=== PATIENT | female | born 1960 | race Asian ===

== ENCOUNTER → 2020-11-10 | Outpatient (REF) | payer OTHER ==
[2020-11-10 12:58] LABS: APPEARANCE, URINE CLEAR (CLEAR); BACTERIA, URINE AUTO NEGATIVE (NEGATIVE); BILIRUBIN, URINE AUTO NEGATIVE (NEGATIVE); BLOOD, URINE BLOOD NEGATIVE (NEGATIVE); COLOR, URINE YELLOW (YELLOW); GLUCOSE, URINE (UA) AUTO NEGATIVE (NEGATIVE); KETONE, URINE AUTO NEGATIVE (NEGATIVE); LEUKOCYTE ESTERASE, URINE AUTO NEGATIVE (NEGATIVE); NITRITE, URINE AUTO NEGATIVE (NEGATIVE); PROTEIN, URINE AUTO NEGATIVE (NEGATIVE); RBC, URINE AUTO 1 /HPF (0-3); SQUAMOUS EPITHELIAL CELL UR AU 1 /HPF (0-6); UROBILINOGEN, URINE AUTO 0.2 mg/dL (0.0-2.0); WBC, URINE AUTO 1 /HPF (0-3)
[2020-11-10 13:27] LABS: CREATININE, URINE 69.5 MG/DL; MALB URINE SIEMENS 6.2 MG/L; MAU/CREAT RATIO 8.9 MCG/MG (0.0-30.0)
[2020-11-10 13:28] LABS: BASO # 0.1 10^3/uL (0.0-0.2); BASO % 0.8 % (0.0-1.0); EOS # 0.2 10^3/uL (0.0-0.5); EOS % 3.6 % (0.0-3.0); HEMATOCRIT 39.4 % (36.0-47.0); HEMOGLOBIN 11.8 g/dl (12.0-15.5); LYMPH # 2.1 10^3/uL (1.5-5.0); LYMPH % 32.8 % (24.0-44.0); MEAN CORPUSCULAR HEMOGLOBIN 24.3 pg (27.0-33.0); MEAN CORPUSCULAR HGB CONC 29.9 g/dl (32.0-36.5); MEAN CORPUSCULAR VOLUME 81.2 fl (80.0-96.0); MONO # 0.4 10^3/uL (0.0-0.8); MONO % 6.5 % (2.0-8.0); NEUTROPHILS # 3.6 10^3/uL (1.5-8.5); NEUTROPHILS % 55.8 % (36.0-66.0); PLATELET COUNT, AUTOMATED 355 10^3/uL (150-450); RED BLOOD COUNT 4.85 10^6/uL (4.00-5.40); WHITE BLOOD COUNT 6.4 10^3/uL (4.0-10.0)
[2020-11-10 14:01] LABS: HEMOGLOBIN A1c 6.1 %
[2020-11-10 14:05] LABS: ALBUMIN 3.1 GM/DL (3.2-5.2); ALT/SGPT 20 U/L (12-78); BILIRUBIN,TOTAL 0.4 MG/DL (0.2-1.0); BLOOD UREA NITROGEN 9 MG/DL (7-18); CALCIUM LEVEL 10.4 MG/DL (8.8-10.2); CARBON DIOXIDE LEVEL 25 MEQ/L (21-32); CHLORIDE LEVEL 107 MEQ/L (98-107); CHOLESTEROL LEVEL 239 MG/DL (<200); CHOLESTEROL RISK RATIO 5.311 (<5); CREATININE FOR GFR 0.66 MG/DL (0.55-1.30); GLOMERULAR FILTRATION RATE > 60.0 (>45); GLUCOSE, FASTING 120 MG/DL (70-100); HDL CHOLESTEROL 45 MG/DL (>40); LDL CHOLESTEROL 174 MG/DL (<100); NON-HDL-C 194 MG/DL; POTASSIUM SERUM 4.4 MEQ/L (3.5-5.1); SODIUM LEVEL 139 MEQ/L (136-145); TOTAL 25(OH) VITAMIN D 10.4 NG/ML (30.0-100.0); TOTAL PROTEIN 7.2 GM/DL (6.4-8.2); TRIGLYCERIDES LEVEL 102 MG/DL (<150)
== END ==
LOC: M LAB REF 11:31
PROVIDERS: ATTEND Pediatrics
DX: Z13.220 Encounter for screening for lipoid disorders (principal); Z13.228 Encounter for screening for other metabolic disorders; R03.0 Elevated blood-pressure reading, without diagnosis of hypertension

== ENCOUNTER → 2020-12-18 | Outpatient (CLI) | payer OTHER ==
--- NOTE | 2020-12-18 09:48 | REP ---
INDICATION: FADY SCR MAMMO/Z12.31. COMPARISON: None TECHNIQUE: Digital screening mammography was carried out bilaterally in CC and MLO projections using both 2D and 3D modalities. Although the patient is 60 years of age history given to me is that today's examination is initial screening examination. By history, the patient has no complaints of a palpable breast abnormality or other significant breast complaints. FINDINGS: The breasts are symmetric in size and shape. Dense heterogenous fibroglandular elements are seen bilaterally. In the left breast outer aspect near the 3 o'clock position in the posterior retroglandular adipose tissue there is an asymmetric density. At least 2 calcifications are seen within this density. Additionally, in the left breast upper aspect but seen only on the MLO view there is a potential density with 1 calcification along its periphery. No other suspicious features are seen in either breast. There is no skin thickening or nipple retraction. The Volpara volumetric breast density pattern is b. IMPRESSION: BIRADS/ACR category 0. Two densities seen in the left breast as described above and for which diagnostic digital magnified spot compression views are recommended in the CC and MLO projections. Additionally, further mammographic imaging may be necessary particularly an exaggerated CC view lateral in an attempt to mammographically visualize the density seen only on the MLO view today. Diagnostic ultrasonography may also be indicated. This patient's Tyrer-Cuzick lifetime breast cancer risk assessment score is 5.4%. This mammogram was interpreted with the aid of an FDA-approved computer-aided detection system. The patient states she had a clinical breast exam in over a year. The patient letter being requested is M0. RECOMMENDATION: As above <Electronically signed by Kristopher Paulino > 12/18/20 [id number]
--- NOTE | 2020-12-18 11:15 | DEXAMM ---
INDICATION: Z78.0 MENOPAUSAL STATE/VERTEBRAL FX ASSMT. COMPARISON: None. TECHNIQUE: Bone density was measured using dual-energy x-ray absorptiometry (DEXA). FINDINGS: AP SPINE L1-L4 BMD 1.070 g/cm2 Young Adult T-Score -1.0 Age Matched Z-Score 0.2. LT FEMUR, TOTAL BMD 0.945 g/cm2 Young Adult T-Score -0.5 Age Matched Z-Score 0.4. LT NECK BMD 0.809 g/cm2 Young Adult T-Score -1.7 Age Matched Z-Score -0.4. RT FEMUR, TOTAL BMD 0.941 g/cm2 Young Adult T-Score -0.5 Age Matched Z-Score 0.4. RT NECK BMD 0.877 g/cm2 Young Adult T-Score -1.2 Age Matched Z-Score 0.1. IMPRESSION: There is low bone density of the spine. There is low bone density of the left hip. There is low bone density of the right hip. FOLLOW-UP: Recommendation for the next bone density exam: 2 years. <Electronically signed by Rey Rodríguez > 12/18/20 [id number]
== END ==
LOC: M WHC 08:31
PROVIDERS: ATTEND Pediatrics
DX: Z12.31 Encounter for screening mammogram for malignant neoplasm of breast (principal); Z78.0 Asymptomatic menopausal state

== ENCOUNTER → 2021-01-02 | Outpatient (CLI) | payer OTHER ==
--- NOTE | 2021-01-02 16:30 | REP ---
INDICATION: ADDITIONAL LT BREAST; ADDITIONAL VIEW LT BREAST. Initial screening mammography from December 18, 2020 was BI-RADS category 0 because of 2 nodular densities in the left breast on screening mammography. Diagnostic imaging was recommended. COMPARISON: No other comparison studies. TECHNIQUE: Magnified focal spot-compression CC and MLO views of the left breast are obtained. A true mL view is obtained with 3D tomography. Targeted left breast sonography is performed. This mammogram was interpreted with the aid of an FDA-approved computer-aided detection system. FINDINGS: Scattered fibroglandular elements are again seen. Diagnostic images confirm the presence of 2 fairly well-circumscribed nodular densities each of which contains eccentric calcifications. The larger density is more anterior in the upper outer quadrant measuring 1.2 cm in greatest diameter. The 2nd lesion is in the posterior 3rd inferolateral aspect more centrally, approximately 3 to 4 o'clock position. This measures 0.9 cm in greatest diameter. The Volpara volumetric breast density pattern is b. Targeted ultrasound: Targeted left breast sonography is performed from 2:00 to 4:00. At 2 o'clock, there is a 0.6 x 0.3 x 0.6 cm hypoechoic nodule, 3.4 cm from the nipple. This may correspond to the more posterior lesion. It is not a simple cyst. It is similar in size. It has relatively low K PA numbers on elastography. At 3 o'clock, there is a hypoechoic area with a focal hyperechoic calcification 3.8 cm from nipple. This lesion measures 1.4 x 0.5 x 1.0 cm. Both of these targets are wider than tall. This larger lesion also has a low K PA on elastography. IMPRESSION: BIRADS/ACR category 4 suspicious left breast mammographic and sonographic findings. Two hypoechoic nodules likely corresponding to the 2 nodule seen mammographically in the upper outer quadrant of the left breast. This patient's Tyrer-Cuzick lifetime breast cancer risk assessment score is 5.4%. RECOMMENDATION: Ultrasound-guided needle biopsy of both targets in the left breast with marker clip placement and post clip placement mammography.. The patient letter being requested is M4. <Electronically signed by Malachi Mckeon > 01/02/21 [id number]
== END ==
LOC: M WHC 14:02
PROVIDERS: ATTEND Pediatrics
DX: R92.2 Inconclusive mammogram (principal)

== ENCOUNTER → 2021-01-05 | Outpatient (CLI) | payer OTHER ==
[~2021-01-05] MED LIST: LIDOCAINE 1% MDV 20ML VIAL As Ordered ONE; SODIUM BICARBONATE 8.4% INJ 50MEQ 50 ML VIAL As Ordered ONE
[2021-01-05 10:51] VITALS: BP 162/80
== END ==
LOC: M WHC 09:11 → M IRPRO 09:11
PROVIDERS: ATTEND Surgery
DX: R92.8 Other abnormal and inconclusive findings on diagnostic imaging of breast (principal)

== ENCOUNTER → 2021-01-24 | Outpatient (CLI) | payer OTHER ==
[~2021-01-24] MED LIST changes: +ERGO500029 PO; -LIDOCAINE 1% MDV 20ML VIAL As Ordered ONE; -SODIUM BICARBONATE 8.4% INJ 50MEQ 50 ML VIAL As Ordered ONE
[2021-01-24 11:20] VITALS: BP 128/82
--- NOTE | 2021-01-24 21:34 | ROOPDOC ---
[facility] Report Of Operation Report of Operation DATE OF PROCEDURE: 01/24/21 DIAGNOSIS: Left breast suspicious mass with calcifications PROCEDURE: Left breast stereotactic biopsy with clip placement SURGEON: Rasta Ash BLOOD LOSS: minimal Lidocaine 1% LOT [id number] Expiration 08/2024 Sodium Bicarbonate 8.4% LOT [id number] Expiration 08/2021 Hydromark clip LOT [id number] Expiration 07/2023 SHAPE : 1 Bx device: Stereotactic Mammotome Revolve Dual Vacuum- assisted Biopsy System 10 G LOT [id number] Expiration 11/2023 REF [id number] Informed consent was obtained in the preop area. The most common risk and possible complications including bleeding, hematoma, bruising, infection, injury to surrounding structures were explained to the patient and patient expressed understanding. Patient was taken to the procedure room and placed prone on the [facility] Prone Breast Biopsy table with the left breast hanging through the table aperture. Left breast was placed into Cranio-Caudal compression and Environmental Planner mario images were taken. Suspicious mass with calcifications was identified in the left posterior breast on the mario images and target was set. CC approach from the bottom was chosen for this procedure. At this time, since we were able to confirm visibility of the suspicious mass with calcifications and patient tolerated prone positioning allowing to proceed with the biopsy, appropriate time out was done stating patients name, date of , and the procedure to be performed. The left breast in CC compression was prepped in the usual fashion. Plain Lidocaine 1% and 8.4% sodium bicarbonate 10:1 mix was used to anesthetize the skin, the biopsy site and tissues along the anticipated biopsy tract. Small skin incision was made with blade number 11. Mammotome 10 G stereotactic breast biopsy device was inserted through the incision and advanced to the previously set coordinates marking the target lesion. Pre-fire imaging was taken to assure appropriate positioning. At this time, Mammotome 10 G breast biopsy device was fired and five vacuum assisted biopsies were collected. The biopsy samples were investigated with [employer] system and target calcifications from the suspicious mass were observed. Biopsy samples were then placed in the formaldehyde, marked with patients name and left breast posterior biopsy site, and sent to pathology for evaluation. SHAPE 1 Hydromark clip was placed into the Mammotome biopsy device channel and deployed. Post-deployment imaging was done to assure appropriate clip deployment. Clip was noted in the left breast. At this point, paddle CC compression of the left breast was released and manual pressure was held to decrease harmonic effect and to assure hemostasis. No bleeding was noted upon removal of the pressure. Patient was slowly repositioned and placed into sitting position, and then assisted off the table. Post-biopsy mammogram of the left breast was obtained and showed clip in expected position. Postprocedural dressing was placed. Patient tolerated procedure well and was taken to the recovery unit in stable condition. Discharge instructions were discussed with the patient and patient expressed understanding. RASTA ASH DO Jan 24, 2021 21:34
== END ==
LOC: M WHCPRO 07:06
PROVIDERS: ATTEND Surgery
DX: N60.22 Fibroadenosis of left breast (principal)

== ENCOUNTER → 2023-06-09 | Outpatient (REF) | payer OTHER ==
[2023-06-09 18:38] LABS: BASO % 0.5 % (0.0-1.0); EOS # 0.2 10^3/uL (0.0-0.5); EOS % 1.9 % (0.0-3.0); HEMATOCRIT 37.9 % (36.0-47.0); HEMOGLOBIN 11.4 g/dl (12.0-15.5); LYMPH # 0.5 10^3/uL (1.5-5.0); LYMPH % 6.1 % (24.0-44.0); MEAN CORPUSCULAR HEMOGLOBIN 24.3 pg (27.0-33.0); MEAN CORPUSCULAR HGB CONC 30.1 g/dl (32.0-36.5); MEAN CORPUSCULAR VOLUME 80.8 fl (80.0-96.0); MONO # 0.4 10^3/uL (0.0-0.8); MONO % 5.2 % (2.0-8.0); NEUTROPHILS # 6.8 10^3/uL (1.5-8.5); NEUTROPHILS % 85.9 % (36.0-66.0); PLATELET COUNT, AUTOMATED 307 10^3/uL (150-450); RED BLOOD COUNT 4.69 10^6/uL (4.00-5.40); WHITE BLOOD COUNT 7.9 10^3/uL (4.0-10.0)
[2023-06-09 19:03] LABS: IRON (FE) 45 UG/DL (50-170); PERCENT SATURATION 10.7 % (13.2-45.0); TOTAL IRON BINDING CAPACITY 419 UG/DL (250-425)
[2023-06-09 19:08] LABS: BLOOD UREA NITROGEN 9 MG/DL (9-23); CALCIUM LEVEL 10.3 MG/DL (8.3-10.6); CARBON DIOXIDE LEVEL 26 MMOL/L (20-31); CHLORIDE LEVEL 103 MMOL/L (98-107); CHOLESTEROL LEVEL 220 MG/DL (<200); CHOLESTEROL RISK RATIO 5.11 (<5); CREATININE FOR GFR 0.61 MG/DL (0.55-1.30); FERRITIN 2.7 NG/ML (7.3-270.7); GLOMERULAR FILTRATION RATE > 60.0 (>45); GLUCOSE, FASTING 92 MG/DL (74-106); LDL CHOLESTEROL 154.6 MG/DL (<100); POTASSIUM SERUM 4.9 MMOL/L (3.5-5.1); SODIUM LEVEL 135 MMOL/L (136-145); THYROID STIMULATING HORMONE 0.938 uIU/ML (0.55-4.78); TOTAL 25(OH) VITAMIN D 19.6 NG/ML (20.0-100.0); TRIGLYCERIDES LEVEL 112 MG/DL (<150)
[2023-06-09 19:11] LABS: HEMOGLOBIN A1c 5.9 % (4.0-6.0)
== END ==
LOC: M LAB REF 16:29
PROVIDERS: ATTEND Pediatrics
DX: E78.5 Hyperlipidemia, unspecified (principal); E55.9 Vitamin D deficiency, unspecified; I10 Essential (primary) hypertension; R73.03 Prediabetes; E61.1 Iron deficiency

== ENCOUNTER → 2023-06-18 | Outpatient (CLI) | payer OTHER | LOC: M WHC 13:53 | PROVIDERS: ATTEND Pediatrics | DX: M85.80 Other specified disorders of bone density and structure, unspecified site (principal) ==

== ENCOUNTER → 2024-04-07 | Outpatient (REF) | payer OTHER ==
[2024-04-07 16:59] LABS: APPEARANCE, URINE CLEAR (CLEAR); BACTERIA, URINE AUTO NEGATIVE (NEGATIVE); BILIRUBIN, URINE AUTO NEGATIVE (NEGATIVE); BLOOD, URINE BLOOD NEGATIVE (NEGATIVE); COLOR, URINE COLORLESS (YELLOW); GLUCOSE, URINE (UA) AUTO NEGATIVE (NEGATIVE); KETONE, URINE AUTO NEGATIVE (NEGATIVE); LEUKOCYTE ESTERASE, URINE AUTO NEGATIVE (NEGATIVE); NITRITE, URINE AUTO NEGATIVE (NEGATIVE); PROTEIN, URINE AUTO NEGATIVE (NEGATIVE); RBC, URINE AUTO 0 /HPF (0-3); SPECIFIC GRAVITY URINE AUTO 1.003 (1.002-1.035); SQUAMOUS EPITHELIAL CELL UR AU 0 /HPF (0-6); UROBILINOGEN, URINE AUTO 0.2 mg/dL (0.0-2.0); WBC, URINE AUTO 0 /HPF (0-3)
== END ==
LOC: M LAB REF 16:13
PROVIDERS: ATTEND Physician Assistant
DX: N39.0 Urinary tract infection, site not specified (principal)

== ENCOUNTER → 2024-04-09 | Outpatient (REF) | payer OTHER ==
[2024-04-09 17:35] LABS: CREATININE, URINE 43.9 MG/DL; MALB URINE SIEMENS < 3.0 MG/L; MAU/CREAT RATIO 6.8 MCG/MG (0.0-30.0)
[2024-04-09 17:37] LABS: BLOOD UREA NITROGEN 12 MG/DL (9-23); CALCIUM LEVEL 10.9 MG/DL (8.3-10.6); CARBON DIOXIDE LEVEL 25 MMOL/L (20-31); CHLORIDE LEVEL 106 MMOL/L (98-107); CHOLESTEROL LEVEL 263 MG/DL (<200); CREATININE FOR GFR 0.68 MG/DL (0.55-1.30); GLOMERULAR FILTRATION RATE > 60.0 (>45); GLUCOSE, FASTING 84 MG/DL (74-106); IRON (FE) 33 UG/DL (50-170); PERCENT SATURATION 7.6 % (13.2-45.0); POTASSIUM SERUM 4.5 MMOL/L (3.5-5.1); SODIUM LEVEL 135 MMOL/L (136-145); TOTAL IRON BINDING CAPACITY 435 UG/DL (250-425); TRIGLYCERIDES LEVEL 100 MG/DL (<150)
[2024-04-09 17:41] LABS: FERRITIN 4.9 NG/ML (7.3-270.7); THYROID STIMULATING HORMONE 0.991 uIU/ML (0.55-4.78)
[2024-04-09 17:51] LABS: BASO % 0.2 % (0.0-1.0); HEMATOCRIT 37.8 % (36.0-47.0); HEMOGLOBIN 11.5 g/dl (12.0-15.5); LYMPH # 2.2 10^3/uL (1.5-5.0); LYMPH % 19.5 % (24.0-44.0); MEAN CORPUSCULAR HGB CONC 30.4 g/dl (32.0-36.5); MEAN CORPUSCULAR VOLUME 78.9 fl (80.0-96.0); MONO # 0.5 10^3/uL (0.0-0.8); MONO % 4.5 % (2.0-8.0); NEUTROPHILS # 8.5 10^3/uL (1.5-8.5); NEUTROPHILS % 75.3 % (36.0-66.0); PLATELET COUNT, AUTOMATED 432 10^3/uL (150-450); RED BLOOD COUNT 4.79 10^6/uL (4.00-5.40); WHITE BLOOD COUNT 11.3 10^3/uL (4.0-10.0)
[2024-04-09 23:54] LABS: CHOLESTEROL RISK RATIO 5.79 (<5); HDL CHOLESTEROL 45.4 MG/DL (>40); LDL CHOLESTEROL 197.6 MG/DL (<100); NON-HDL-C 217.6 MG/DL
== END ==
LOC: M LAB REF 16:42
PROVIDERS: ATTEND Pediatrics
DX: I10 Essential (primary) hypertension (principal); D50.9 Iron deficiency anemia, unspecified; R73.03 Prediabetes

== ENCOUNTER → 2024-04-09 | Outpatient (CLI) | payer OTHER | LOC: M LAB 14:44 | PROVIDERS: ATTEND Pediatrics | DX: M54.50 Low back pain, unspecified (principal) ==

== ENCOUNTER → 2024-06-04 | Outpatient (CLI) | payer OTHER | LOC: M WHC 12:29 | PROVIDERS: ATTEND Pediatrics | DX: Z12.31 Encounter for screening mammogram for malignant neoplasm of breast (principal); R92.333 Mammographic heterogeneous density, bilateral breasts ==

== ENCOUNTER → 2024-08-06 | Outpatient (REF) | payer OTHER ==
[2024-08-06 14:44] LABS: HEMOGLOBIN A1c 6.2 % (4.0-6.0)
[2024-08-06 14:45] LABS: CHOLESTEROL RISK RATIO 5.83 (<5); HDL CHOLESTEROL 43.2 MG/DL (>40); NON-HDL-C 208.8 MG/DL
[2024-08-06 14:46] LABS: PERCENT SATURATION 11.3 % (13.2-45.0)
== END ==
LOC: M LAB REF 13:19
PROVIDERS: ATTEND Pediatrics
DX: E78.5 Hyperlipidemia, unspecified (principal); R73.03 Prediabetes; D50.9 Iron deficiency anemia, unspecified

== ENCOUNTER → 2025-04-11 | Outpatient (REF) | payer OTHER ==
[2025-04-11 14:32] LABS: CALCIUM LEVEL 10.4 MG/DL (8.3-10.6); CHOLESTEROL LEVEL 166.0 MG/DL (<200); CHOLESTEROL RISK RATIO 4.97 (<5); LDL CHOLESTEROL 112.6 MG/DL (<100); NON-HDL-C 132.6 MG/DL; PTH INTACT 127.3 PG/ML (18.5-88.0); TRIGLYCERIDES LEVEL 100.0 MG/DL (<150)
[2025-04-11 14:34] LABS: TOTAL 25(OH) VITAMIN D 84.3 NG/ML (20.0-100.0)
== END ==
LOC: M LAB REF 13:41
PROVIDERS: ATTEND Pediatrics
DX: E78.5 Hyperlipidemia, unspecified (principal); E83.52 Hypercalcemia